=== PATIENT | female | born 1990 | race Caucasian/White ===

== ENCOUNTER 2017-02-08 16:25 | Emergency (ER) | payer OTHER ==
[2017-02-08 16:46] VITALS: BP 121/72; PULSE 60; RESP 17; TEMP 98.2
--- NOTE | 2017-02-08 16:55 | ED ---
General Adult HPI - General Chief complaint: Extremity Injury, Lower Stated complaint: LEFT ANKLE PAIN Time Seen by Provider: 02/08/17 16:47 Source: patient, RN notes reviewed Mode of arrival: wheelchair Limitations: no limitations - History of Present Illness Initial comments: This is a 26-year-old female presents with left foot pain. Patient states she was jumping around with her kids and landed on her left foot wrong. Patient now complains of pain to the top of her left foot. Patient denies any ankle pain. Patient denies any numbness/weakness or tingling. Patient states she has noticed swelling to the left foot. Patient denies any chance of being . Patient denies any recent fever, chills, shortness breath, chest pain , abdominal pain, nausea/vomiting/diarrhea, back pain, hematuria, headache, or visual changes, or any other complaints. - Related Data Home Medications Medication Instructions Recorded Confirmed Folic Acid 1 mg PO DAILY 08/22/16 09/09/16 Calcium Carbonate [Tums] 500 mg PO AC-SUPPER 09/01/16 09/09/16 Previous Rx's Medication Instructions Recorded Acetaminophen-Codeine 300-30mg 1 tab PO Q4H PRN #30 tablet 09/12/16 [Tylenol #3] Ferrous Sulfate [Feosol] 325 mg PO DAILY #30 tab 09/12/16 Ibuprofen [Motrin] 600 mg PO Q6HR PRN #30 tab 09/12/16 Allergies Allergy/AdvReac Type Severity Reaction Status Date / Time No Known Allergies Allergy Verified 09/09/16 06:13 Review of Systems ROS Statement: Those systems with pertinent positive or pertinent negative responses have been documented in the HPI. ROS Other: All systems not noted in ROS Statement are negative. Past Medical History Past Medical History: No Reported History History of Any Multi-Drug Resistant Organisms: None Reported Past Surgical History: No Surgical Hx Reported Past Anesthesia/Blood Transfusion Reactions: No Reported Reaction Past Psychological History: No Psychological Hx Reported Smoking Status: Former smoker Past Alcohol Use History: Occasional Past Drug Use History: None Reported - Past Family History Mother Family Medical History: Hypertension General Exam - General Exam Comments Initial Comments: General: The patient is awake and alert, in no distress, and does not appear acutely ill. Neck: The neck is supple, there is no tenderness or JVD. Cardiovascular: There is a regular rate and rhythm. No murmur, rub or gallop is appreciated. Respiratory: Lungs are clear to auscultation, respirations are non-labored, breath sounds are equal. No wheezes, stridor, rales, or rhonchi. Musculoskeletal: There is tenderness to palpation over the dorsal aspect of the left foot along with the lateral and medial aspects of the left foot. There is no tenderness to palpation of the right ankle. There is mild swelling to the left foot. There is no erythema or ecchymosis. Patient has strength 5/5, limited range of motion due to pain and sensation intact. Posterior tibial and dorsalis pedis pulses 2+ bilaterally. Neurological: A&O x 3. CN II-XII intact, There are no obvious motor or sensory deficits. Coordination appears grossly intact. Speech is normal. Skin: Skin is warm and dry and no rashes or lesions are noted. Psychiatric: Normal mood and affect. Limitations: no limitations Course Vital Signs 02/08/17 16:43 Temperature 98.2 F Pulse Rate 60 Respiratory 17 Rate Blood Pressure 121/72 O2 Sat by Pulse 98 Oximetry Medical Decision Making - Medical Decision Making This is a 26-year-old female who presents with foot pain. On physical exam there is tenderness to palpation over the dorsal aspect of the left foot along with the lateral and medial aspects of the left foot. There is no tenderness to palpation of the right ankle. There is mild swelling to the left foot. There is no erythema or ecchymosis. Patient has strength 5/5, limited range of motion due to pain and sensation intact. Posterior tibial and dorsalis pedis pulses 2+ bilaterally. An x-ray of the left foot was done and reviewed showing : Negative foot exam. Reported by Dr. Martinez. I discussed results with patient. Discussed foot sprain. I discussed rest, ice, elevate and use James wrap for compression. I discussed Tylenol and Motrin for any pain. I discussed occult fracture. I discussed follow-up with orthopedics if symptoms do not improve 3-5 days. I discussed use of crutches. Discussed range of motion exercises. Discussed that patient should follow up with PCP in one to 2 days or return to the [facility] for any worsening symptoms or for any further concerns. Patient was receptive to this plan and patient will be discharged home. Disposition Clinical Impression: Foot sprain Disposition: HOME SELF-CARE Condition: Good Instructions: Foot Sprain (ED) Additional Instructions: Please rest, ice, elevate and use James wrap for compression. Please use Tylenol or Motrin for any pain. Please use crutches as needed for ambulation. Please perform range of motion exercises periodically throughout the day.If symptoms do not improve in the next 7 days repeat x-rays may be needed to rule out occult fracture. Please follow-up with family doctor in the next 2 days of symptoms have not improved. Please return to emergency room if the symptoms increase or worsen or for any other concerns. Referrals: Abdiel Solomon MD [Primary Care Provider] - 1-2 days Derik Golden MD [Medical Doctor] - 1-2 days Time of Disposition: 18:08
--- NOTE | 2017-02-08 17:58 | XR ---
EXAMINATION TYPE: XR foot complete LT DATE OF EXAM: 02/08/2017 5:11 PM COMPARISON: NONE HISTORY: Foot pain TECHNIQUE: 3 views FINDINGS: I see no fracture nor dislocation. Metatarsals appear intact. There are no erosions. IMPRESSION: Negative left foot exam.
== END 2017-02-08 18:10 | disposition home or self-care (01) ==
LOC: EC 16:25
DX: S93.601A Unspecified sprain of right foot, initial encounter (principal); X58.XXXA Exposure to other specified factors, initial encounter; Y93.39 Activity, other involving climbing, rappelling and jumping off; Z87.891 Personal history of nicotine dependence
CPT/HCPCS: 99283

== ENCOUNTER → 2017-11-17 | Outpatient (CLI) | payer OTHER ==
[2017-11-18 04:40] LABS: HIV AB P24 Non-Reactive (Non-Reactive); HIV P24 AG Non-Reactive (Non-Reactive)
== END | disposition home or self-care (01) ==
LOC: LABWHC1 15:59
PROVIDERS: ATTEND Obstetrics & Gynecology
DX: Z11.3 Encounter for screening for infections with a predominantly sexual mode of transmission (principal)
CPT/HCPCS: 36415; 86780; 87390

== ENCOUNTER 2020-01-10 17:01 | Emergency (ER) | payer OTHER ==
[2020-01-10 17:11] VITALS: BP 118/83; PULSE 78; RESP 18; TEMP 98.1
--- NOTE | 2020-01-10 17:49 | ED ---
General Adult HPI - General Chief complaint: Headache Stated complaint: Fever Time Seen by Provider: 01/10/20 17:36 Source: patient, RN notes reviewed Mode of arrival: ambulatory Limitations: no limitations - History of Present Illness Initial comments: This is a 29-year-old female presents emergency Department chief complaint of sinus pressure and congestion headache. Patient states she's been sick for last 10 days. Patient states is not going away. She reports body aches and subjective fevers and chills denies any unilateral headache, weakness denies any nausea vomiting. Patient states she's had headaches like this in the past as well as not the worse headache of her life. - Related Data Home Medications Medication Instructions Recorded Confirmed Folic Acid 1 mg PO DAILY 08/22/16 09/09/16 Calcium Carbonate [Tums] 500 mg PO AC-SUPPER 09/01/16 09/09/16 Previous Rx's Medication Instructions Recorded Acetaminophen-Codeine 300-30mg 1 tab PO Q4H PRN #30 tablet 09/12/16 [Tylenol #3] Ferrous Sulfate [Feosol] 325 mg PO DAILY #30 tab 09/12/16 Ibuprofen [Motrin] 600 mg PO Q6HR PRN #30 tab 09/12/16 Amoxicillin/Potassium Clav 1 tab PO Q12HR #20 tab 01/10/20 [Augmentin 875-125 Tablet] Allergies Allergy/AdvReac Type Severity Reaction Status Date / Time No Known Allergies Allergy Verified 01/10/20 17:08 Review of Systems ROS Statement: Those systems with pertinent positive or pertinent negative responses have been documented in the HPI. ROS Other: All systems not noted in ROS Statement are negative. Past Medical History Past Medical History: No Reported History History of Any Multi-Drug Resistant Organisms: None Reported Past Surgical History: No Surgical Hx Reported Past Anesthesia/Blood Transfusion Reactions: No Reported Reaction Past Psychological History: No Psychological Hx Reported Smoking Status: Current some day smoker Past Alcohol Use History: Occasional Past Drug Use History: None Reported - Past Family History Mother Family Medical History: Hypertension General Exam Limitations: no limitations General appearance: alert, in no apparent distress Head exam: Present: atraumatic, normocephalic, normal inspection Eye exam: Present: PERRL, EOMI. Absent: normal appearance, scleral icterus, conjunctival injection, periorbital swelling ENT exam: Present: mucous membranes moist, TM's normal bilaterally. Absent: normal exam (Tenderness to the sinuses noted), normal oropharynx Neck exam: Present: normal inspection, full ROM. Absent: tenderness, meningismus, lymphadenopathy Respiratory exam: Present: normal lung sounds bilaterally. Absent: respiratory distress, wheezes, rales, rhonchi, stridor Cardiovascular Exam: Present: regular rate, normal rhythm, normal heart sounds. Absent: systolic murmur, diastolic murmur, rubs, gallop, clicks Course Vital Signs 01/10/20 17:08 Temperature 98.1 F Pulse Rate 78 Respiratory 18 Rate Blood Pressure 118/83 O2 Sat by Pulse 100 Oximetry Medical Decision Making - Medical Decision Making Patient has had ongoing headache, sinus congestion pressure. Patient treated for acute sinusitis. Did offer imaging patient declined at this time. Patient will follow-up with symptoms worsen. Disposition Clinical Impression: Sinusitis Disposition: HOME SELF-CARE Condition: Stable Instructions (If sedation given, give patient instructions): Sinusitis (ED) Additional Instructions: Please return to the Emergency Department if symptoms worsen or any other concerns. Prescriptions: Amoxicillin/Potassium Clav [Augmentin 875-125 Tablet] 1 tab PO Q12HR #20 tab Is patient prescribed a controlled substance at d/c from ED?: No Referrals: Abdiel Solomon MD [Primary Care Provider] - 1-2 days Time of Disposition: 17:49
== END 2020-01-10 17:58 | disposition home or self-care (01) ==
LOC: EC 17:01
DX: J01.90 Acute sinusitis, unspecified (principal); F17.200 Nicotine dependence, unspecified, uncomplicated
CPT/HCPCS: 99283

== ENCOUNTER → 2020-07-30 | Outpatient (CLI) | payer OTHER ==
[2020-07-30 15:17] LABS: HCT 40.4 % (34.0-46.0); HGB 12.8 gm/dL (11.4-16.0); MCH 29.5 pg (25.0-35.0); MCHC 31.6 g/dL (31.0-37.0); MCV 93.3 fL (80.0-100.0); Mean Platelet Volume 7.8; Platelet Count 257 k/uL (150-450); RBC 4.33 m/uL (3.80-5.40); RDW 13.2 % (11.5-15.5); WBC 5.8 k/uL (3.8-10.6)
[2020-07-30 17:24] LABS: Lymphocytes # (M) 1.57 k/uL (1.0-4.8); Monocytes # (M) 0.17 k/uL (0-1.0); Neutrophils # (M) 4.06 k/uL (1.3-7.7); Neutrophils % (M) 70 %; Nucleated Red Blood Cells 0 /100 WBC (0-0); Total Cells Counted 100
[2020-07-31 01:02] LABS: Erythrocyte Sedimentation Rate 4 mm/Hr (0-20)
[2020-07-31 15:44] LABS: HLA B27 NEGATIVE
== END | disposition home or self-care (01) ==
LOC: LABWHC1 14:10
PROVIDERS: ATTEND Internal Medicine
DX: M79.641 Pain in right hand (principal); I73.00 Raynaud's syndrome without gangrene
CPT/HCPCS: 36415; 85025; 85652; 86038; 86431; 86812

== ENCOUNTER 2021-10-30 23:22 | Emergency (ER) | payer OTHER ==
[2021-10-30 23:38] VITALS: RESP 20; TEMP 98.4
--- NOTE | 2021-10-31 00:01 | XR ---
EXAMINATION TYPE: XR chest 2V DATE OF EXAM: 10/30/2021 COMPARISON: NONE HISTORY: Chest pain TECHNIQUE: 2 views FINDINGS: Heart and mediastinum are normal. Lungs are clear. Diaphragm is normal. Bony thorax is norm al. IMPRESSION: Normal chest.
[2021-10-31] MEDS ORDERED: KETOROLAC 15 MG/ML 1 ML VIAL IVP STA (01:45)
[2021-10-31] MEDS ORDERED: SODIUM CHLORIDE 0.9% 1,000 ML IV STA (01:45)
[2021-10-31 02:23] LABS: Appearance,Urine Clear (Clear); Bilirubin,Urine Negative (Negative); Blood,Urine Negative (Negative); Color,Urine Light Yellow; Glucose,Urine (UA) Negative (Negative); Ketones,Urine Negative (Negative); Leukocyte Esterase,Urine Negative (Negative); Nitrite,Urine Negative (Negative); Protein,Urine Negative (Negative); Specific Gravity,Urine 1.006 (1.001-1.035); Urobilinogen,Urine <2.0 mg/dL (<2.0)
--- NOTE | 2021-10-31 02:33 | CT ---
EXAMINATION TYPE: CT abdomen pelvis wo con DATE OF EXAM: 10/31/2021 COMPARISON: None HISTORY: ABD PAIN CT DLP: 414.20 mGycm Automated exposure control for dose reduction was used. Images obtained from the diaphragm to the floor the pelvis without contrast. Lung bases are clear. There is no pleural effusion. Heart size is normal. There is no pericardial eff usion. Liver spleen stomach pancreas appear intact. The bile ducts are not dilated. There is no adrenal mass. Kidneys have normal size. There is no hydronephrosis. Ureters are not dilat ed. There is no retroperitoneal adenopathy. Appendix is posterior and appears normal. There is no ret roperitoneal adenopathy. Bladder distends smoothly. There is no inguinal hernia. There is no free flu id in the pelvis. Uterus is anteverted. Lumbar vertebra have normal alignment. Posterior elements are intact. There is no compression fracture. Bony pelvis is intact. Hip joints are intact. There is no mesenteric edema. There is no ascites or free air. There is no bowel obstruction. IMPRESSION: Negative CT scan abdomen and pelvis. Normal appendix.
[2021-10-31 02:46] LABS: ALT 9 U/L (4-34); AST 21 U/L (14-36); African American GFR (CKD) >90 (>60 ml/min/1.73 sqM); Albumin 4.8 g/dL (3.5-5.0); Alkaline Phosphatase 50 U/L (38-126); Anion Gap 11 mmol/L; Blood Urea Nitrogen 9 mg/dL (7-17); Calcium 9.8 mg/dL (8.4-10.2); Carbon Dioxide 26 mmol/L (22-30); Chloride 103 mmol/L (98-107); Glucose 96 mg/dL (74-99); Lipase 144 U/L (23-300); Non-African American GFR(CKD) >90 (>60 ml/min/1.73 sqM); Potassium 4.3 mmol/L (3.5-5.1); Sodium 140 mmol/L (137-145); Total Bilirubin 0.4 mg/dL (0.2-1.3); Total Protein 8.4 g/dL (6.3-8.2)
[2021-10-31 02:55] LABS: HCT 40.4 % (34.0-46.0); HGB 13.2 gm/dL (11.4-16.0); MCHC 32.7 g/dL (31.0-37.0); MCV 91.9 fL (80.0-100.0); Mean Platelet Volume 8.5; Platelet Count 268 k/uL (150-450); RBC 4.39 m/uL (3.80-5.40); RDW 13.4 % (11.5-15.5); WBC 13.2 k/uL (3.8-10.6)
--- NOTE | 2021-10-31 03:02 | ED ---
General Adult HPI - General Chief complaint: Recheck/Abnormal Lab/Rx Stated complaint: rib pain Time Seen by Provider: 10/31/21 01:21 Source: patient Mode of arrival: ambulatory Limitations: no limitations - History of Present Illness Initial comments: 31-year-old female patient presents to the emergency department today for evaluation of left flank pain. States it is sharp. Worsens with deep breaths. States this started 2-3 days ago. She reports some mild discomfort to left upper quadrant. States she is currently on her period. He denies any dysuria or urinary urgency or frequency. Denies any fever or chills. Denies nausea or vomiting. Denies any shortness of breath. She did recently have COVID-19 symptoms improved a little over a week ago. Patient denies any recent rash, chest pain, diarrhea, constipation, numbness, tingling, dizziness, weakness, hematuria, dysuria, urinary urgency, urinary frequency, headache, visual changes, or any other complaints. - Related Data Home Medications Medication Instructions Recorded Confirmed Folic Acid 1 mg PO DAILY 08/22/16 09/09/16 Calcium Carbonate [Tums] 500 mg PO AC-SUPPER 09/01/16 09/09/16 Previous Rx's Medication Instructions Recorded Acetaminophen-Codeine 300-30mg 1 tab PO Q4H PRN #30 tablet 09/12/16 [Tylenol #3] Ferrous Sulfate [Feosol] 325 mg PO DAILY #30 tab 09/12/16 Ibuprofen [Motrin] 600 mg PO Q6HR PRN #30 tab 09/12/16 Amoxicillin/Potassium Clav 1 tab PO Q12HR #20 tab 01/10/20 [Augmentin 875-125 Tablet] Cyclobenzaprine [Flexeril] 10 mg PO TID #15 tab 10/31/21 Ibuprofen [Motrin] 600 mg PO Q8HR PRN #30 tab 10/31/21 Allergies Allergy/AdvReac Type Severity Reaction Status Date / Time No Known Allergies Allergy Verified 10/30/21 23:34 Review of Systems ROS Statement: Those systems with pertinent positive or pertinent negative responses have been documented in the HPI. ROS Other: All systems not noted in ROS Statement are negative. Past Medical History Past Medical History: No Reported History History of Any Multi-Drug Resistant Organisms: None Reported Past Surgical History: No Surgical Hx Reported Past Anesthesia/Blood Transfusion Reactions: No Reported Reaction Past Psychological History: No Psychological Hx Reported Smoking Status: Never smoker Past Alcohol Use History: Occasional Past Drug Use History: None Reported - Past Family History Mother Family Medical History: Hypertension General Exam Limitations: no limitations General appearance: alert, in no apparent distress, other (This is a well- developed, well-nourished adult female patient in no acute distress. Vital signs upon presentation are temperature 98.4F, pulse 78, respirations 20, blood pressure 114/66, pulse ox 99% on room air.) ENT exam: Present: normal exam, normal oropharynx, mucous membranes moist Respiratory exam: Present: normal lung sounds bilaterally. Absent: respiratory distress, wheezes, rales, rhonchi, stridor Cardiovascular Exam: Present: regular rate, normal rhythm, normal heart sounds. Absent: systolic murmur, diastolic murmur, rubs, gallop, clicks GI/Abdominal exam: Present: soft, tenderness (Left upper quadrant), normal bowel sounds. Absent: distended, guarding, rebound, rigid Back exam: Present: normal inspection, CVA tenderness (L). Absent: CVA tenderness (R) Neurological exam: Present: alert, oriented X3, CN II-XII intact Psychiatric exam: Present: normal affect, normal mood Skin exam: Present: warm, dry, intact, normal color. Absent: rash Course Vital Signs 10/30/21 23:34 Temperature 98.4 F Pulse Rate 78 Respiratory 20 Rate Blood Pressure 114/66 O2 Sat by Pulse 99 Oximetry Medical Decision Making - Medical Decision Making 31-year-old female patient presented for evaluation of left flank pain radiation to the left abdomen. Physical examination did reveal left CVA tenderness on the left upper quadrant tenderness. She is afebrile normal vital signs. Labs reviewed and did reveal mildly elevated white blood cell count. CT abdomen and pelvis was obtained and was negative. We did discuss possible muscular injury. She'll be given Flexeril Tylenol codeine starter pack. She'll be discharged with ibuprofen Flexeril. She is instructed to apply hot compresses perform gentle range of motion. Instructed to follow-up the primary care physician for recheck as soon as possible. Return parameters were discussed in detail. She verbalizes understanding and agrees with this plan. My attending is Dr. Rob. - Lab Data Result diagrams: 10/31/21 02:19 10/31/21 02:19 Lab Results 10/31/21 10/31/21 10/31/21 Range/Units 02:01 02:01 02:19 WBC 13.2 H (3.8-10.6) k/uL RBC 4.39 (3.80-5.40) m/uL Hgb 13.2 (11.4-16.0) gm/dL Hct 40.4 (34.0-46.0) % MCV 91.9 (80.0-100.0) fL MCH 30.0 (25.0-35.0) pg MCHC 32.7 (31.0-37.0) g/dL RDW 13.4 (11.5-15.5) % Plt Count 268 (150-450) k/uL MPV 8.5 Sodium (137-145) mmol/L Potassium (3.5-5.1) mmol/L Chloride (98-107) mmol/L Carbon Dioxide (22-30) mmol/L Anion Gap mmol/L BUN (7-17) mg/dL Creatinine (0.52-1.04) mg/dL Est GFR (CKD-EPI)AfAm (>60 ml/min/1.73 sqM) Est GFR (CKD-EPI)NonAf (>60 ml/min/1.73 sqM) Glucose (74-99) mg/dL Plasma Lactic Acid Ruddy (0.7-2.0) mmol/L Calcium (8.4-10.2) mg/dL Total Bilirubin (0.2-1.3) mg/dL AST (14-36) U/L ALT (4-34) U/L Alkaline Phosphatase (38-126) U/L Total Protein (6.3-8.2) g/dL Albumin (3.5-5.0) g/dL Lipase (23-300) U/L Urine Color Light Yellow Urine Appearance Clear (Clear) Urine pH 6.0 (5.0-8.0) Ur Specific Balm 1.006 (1.001-1.035) Urine Protein Negative (Negative) Urine Glucose (UA) Negative (Negative) Urine Ketones Negative (Negative) Urine Blood Negative (Negative) Urine Nitrite Negative (Negative) Urine Bilirubin Negative (Negative) Urine Urobilinogen <2.0 (<2.0) mg/dL Ur Leukocyte Esterase Negative (Negative) Urine HCG, Qual Not Detected (Not Detectd) 10/31/21 10/31/21 Range/Units 02:19 02:19 WBC (3.8-10.6) k/uL RBC (3.80-5.40) m/uL Hgb (11.4-16.0) gm/dL Hct (34.0-46.0) % MCV (80.0-100.0) fL MCH (25.0-35.0) pg MCHC (31.0-37.0) g/dL RDW (11.5-15.5) % Plt Count (150-450) k/uL MPV Sodium 140 (137-145) mmol/L Potassium 4.3 (3.5-5.1) mmol/L Chloride 103 (98-107) mmol/L Carbon Dioxide 26 (22-30) mmol/L Anion Gap 11 mmol/L BUN 9 (7-17) mg/dL Creatinine 0.65 (0.52-1.04) mg/dL Est GFR (CKD-EPI)AfAm >90 (>60 ml/min/1.73 sqM) Est GFR (CKD-EPI)NonAf >90 (>60 ml/min/1.73 sqM) Glucose 96 (74-99) mg/dL Plasma Lactic Acid Ruddy <0.5 L (0.7-2.0) mmol/L Calcium 9.8 (8.4-10.2) mg/dL Total Bilirubin 0.4 (0.2-1.3) mg/dL AST 21 (14-36) U/L ALT 9 (4-34) U/L Alkaline Phosphatase 50 (38-126) U/L Total Protein 8.4 H (6.3-8.2) g/dL Albumin 4.8 (3.5-5.0) g/dL Lipase 144 (23-300) U/L Urine Color Urine Appearance (Clear) Urine pH (5.0-8.0) Ur Specific Balm (1.001-1.035) Urine Protein (Negative) Urine Glucose (UA) (Negative) Urine Ketones (Negative) Urine Blood (Negative) Urine Nitrite (Negative) Urine Bilirubin (Negative) Urine Urobilinogen (<2.0) mg/dL Ur Leukocyte Esterase (Negative) Urine HCG, Qual (Not Detectd) - Radiology Data Radiology results: report reviewed, image reviewed X-ray of the chest is obtained. Report was reviewed in its entirety. Impression by Dr. Martinez shows normal chest. CT abdomen and pelvis was obtained without contrast. Report was reviewed in its entirety. Impression by Dr. Martinez shows negative computed tomography scan abdomen and pelvis. Normal appendix. Disposition Clinical Impression: Flank pain, Muscle spasm Disposition: HOME SELF-CARE Condition: Good Instructions (If sedation given, give patient instructions): Flank Pain (ED), Muscle Spasm (ED) Additional Instructions: Apply warm compresses to the area. Perform gentle range of motion. Take medication as directed. Follow up through primary care physician for recheck in 1-2 days. Return for any new, worsening, or concerning symptoms. Prescriptions: Cyclobenzaprine [Flexeril] 10 mg PO TID #15 tab Ibuprofen [Motrin] 600 mg PO Q8HR PRN #30 tab PRN Reason: Pain Is patient prescribed a controlled substance at d/c from ED?: No Referrals: Abdiel Solomon MD [Primary Care Provider] - 1-2 days Time of Disposition: 03:24
[2021-10-31] MEDS ORDERED: ACET/COD 300 MG/30 MG STARTER PACK 6 TAB BTL PO STA (03:21)
[2021-10-31] MEDS ORDERED: CYCLOBENZAPRINE 10MG STARTER 3 TAB BTL PO STA (03:21)
[2021-10-31 03:24] LABS: Band Neutrophils % 3 %; Eosinophils # (M) 0.13 k/uL (0-0.7); Lymphocytes # (M) 1.19 k/uL (1.0-4.8); Monocytes # (M) 0.13 k/uL (0-1.0); Neutrophils % (M) 86 %; Nucleated Red Blood Cells 0 /100 WBC (0-0); Total Cells Counted 100
[2021-10-31 03:40] VITALS: BP 116/72; PULSE 80
== END 2021-10-31 03:39 | disposition home or self-care (01) ==
LOC: EC 23:22
DX: R10.12 Left upper quadrant pain (principal); M62.838 Other muscle spasm
CPT/HCPCS: 99284; 96374; 96361; 36415; 80053; 83605; 83690; 85025; 81003; 81025; 71046; 74176; J1885

== ENCOUNTER 2023-06-24 08:02 | Emergency (ER) | payer OTHER ==
[2023-06-24 08:12] VITALS: BP 117/79; PULSE 79; RESP 18; TEMP 98.9
--- NOTE | 2023-06-24 08:24 | ED ---
General Adult HPI - General Chief complaint: Extremity Problem,Nontraumatic Stated complaint: L arm numbness Time Seen by Provider: 06/24/23 08:06 Source: patient, RN notes reviewed, old records reviewed Mode of arrival: ambulatory Limitations: no limitations - History of Present Illness Initial comments: 32-year-old female presenting for evaluation of left hand pain and wrist pain and numbness. The numbness affects the fourth and fifth digits predominantly. She does have a job which requires a lot of repetitive motion and she uses her left arm predominantly. Denies headache. Denies speech abnormalities, denies any symptoms in the leg. No specific injury. No fever - Related Data Home Medications Medication Instructions Recorded Confirmed Folic Acid 1 mg PO DAILY 08/22/16 09/09/16 Calcium Carbonate [Tums] 500 mg PO AC-SUPPER 09/01/16 09/09/16 Previous Rx's Medication Instructions Recorded Acetaminophen-Codeine 300-30mg 1 tab PO Q4H PRN #30 tablet 09/12/16 [Tylenol #3] Ferrous Sulfate [Feosol] 325 mg PO DAILY #30 tab 09/12/16 Ibuprofen [Motrin] 600 mg PO Q6HR PRN #30 tab 09/12/16 Amoxicillin/Potassium Clav 1 tab PO Q12HR #20 tab 01/10/20 [Augmentin 875-125 Tablet] Cyclobenzaprine [Flexeril] 10 mg PO TID #15 tab 10/31/21 Ibuprofen [Motrin] 600 mg PO Q8HR PRN #30 tab 10/31/21 Ibuprofen [Motrin] 600 mg PO Q8HR PRN #24 tab 06/24/23 Allergies Allergy/AdvReac Type Severity Reaction Status Date / Time No Known Allergies Allergy Verified 06/24/23 08:12 Review of Systems ROS Statement: Those systems with pertinent positive or pertinent negative responses have been documented in the HPI. ROS Other: All systems not noted in ROS Statement are negative. Past Medical History Past Medical History: No Reported History History of Any Multi-Drug Resistant Organisms: None Reported Past Surgical History: No Surgical Hx Reported Past Anesthesia/Blood Transfusion Reactions: No Reported Reaction Past Psychological History: No Psychological Hx Reported Smoking Status: Never smoker Past Alcohol Use History: Occasional Past Drug Use History: Marijuana - Past Family History Mother Family Medical History: Hypertension General Exam Limitations: no limitations General appearance: alert, in no apparent distress Head exam: Present: atraumatic, normocephalic Eye exam: Present: normal appearance, PERRL ENT exam: Present: normal exam Neck exam: Present: normal inspection Respiratory exam: Present: normal lung sounds bilaterally. Absent: respiratory distress, wheezes Cardiovascular Exam: Present: regular rate, normal rhythm GI/Abdominal exam: Present: soft. Absent: distended, tenderness, guarding, rebound Extremities exam: Present: normal inspection, full ROM, normal capillary refill. Absent: tenderness Neurological exam: Present: alert, oriented X3, CN II-XII intact. Absent: motor sensory deficit Psychiatric exam: Present: normal affect, normal mood Skin exam: Present: warm, dry, intact. Absent: cyanosis, diaphoretic Course Vital Signs 06/24/23 08:09 Temperature 98.9 F Pulse Rate 79 Respiratory 18 Rate Blood Pressure 117/79 O2 Sat by Pulse 98 Oximetry Medical Decision Making - Medical Decision Making Was pt. sent in by a medical professional or institution (, PA, PACKAGE CENTER SUPERVISOR, urgent care, hospital, or assisted...) When possible be specific @ -No Did you speak to anyone other than the patient for history (EMS, parent, family, police, friend...)? What history was obtained from this source @ -No Did you review nursing and triage notes (agree or disagree)? Why? @ -I reviewed and agree with nursing and triage notes Were old charts reviewed (outside hosp., previous admission, EMS record, old EKG, old radiological studies, urgent care reports/EKG's, assisted records)? Report findings @ -No old charts were reviewed Differential Diagnosis (chest pain, altered mental status, abdominal pain women, abdominal pain men, vaginal bleeding, weakness, fever, dyspnea, syncope, headache, dizziness, GI bleed, back pain, seizure, CVA, palpatations, mental health, musculoskeletal)? @ -[Differential Musculoskeletal Muscular strain, contusion, ligament sprain, fracture, arthritis, septic arthritis, bursitis, cellulitis, muscle spasm, nerve compression, DVT, arterial occlusion, herpes zoster, electrolyte abnormality, tumor.... This is not meant to be in all inclusive list EKG interpreted by me (3pts min.). @ -As above X-rays interpreted by me (1pt min.). @ -None done CT interpreted by me (1pt min.). @ -None done U/S interpreted by me (1pt. min.). @ -None done What testing was considered but not performed or refused? (CT, X-rays, U/S, labs)? Why? @ -None What meds were considered but not given or refused? Why? @ -None Did you discuss the management of the patient with other professionals (professionals i.e. Dr., PA, PACKAGE CENTER SUPERVISOR, lab, RT, psych nurse, delinquency prevention social worker, bowling ball finisher, teacher, corrections officer, case consultant)? Give summary @ -No Was smoking cessation discussed for >3mins.? @ -No Was critical care preformed (if so, how long)? @ -No Were there social determinants of health that impacted care today? How? (Homelessness, low income, unemployed, alcoholism, drug addiction, transportation, low edu. Level, literacy, decrease access to med. care, penitentiary, rehab)? @ -No Was there de-escalation of care discussed even if they declined (Discuss DNR or withdrawal of care, Hospice)? DNR status @ -No What co-morbidities impacted this encounter? (DM, HTN, Smoking, COPD, CAD, Cancer, CVA, ARF, Chemo, Hep., AIDS, mental health diagnosis, sleep apnea, morbid obesity)? @ -None Was patient admitted / discharged? Hospital course, mention meds given and route, prescriptions, significant lab abnormalities, going to OR and other pertinent info. @ -[22-year-old female with pain and numbness to the left hand and wrist. Likely cubital tunnel syndrome she has a repetitive job and uses predominantly her left hand. She has numbness sensation to the fourth and fifth digit. She has good strength throughout, no focal weakness. No ataxia. Normal cap refill. No soft tissue swelling. She will rest and ice the extremity and take Motrin. She's given strict return parameters. Undiagnosed new problem with uncertain prognosis? @ -No Drug Therapy requiring intensive monitoring for toxicity (Heparin, Nitro, Insulin, Cardizem)? @ -No Were any procedures done? @ -No Diagnosis/symptom? @ -[Ulnar nerve neuropathy Acute, or Chronic, or Acute on Chronic? @ -[Acute Uncomplicated (without systemic symptoms) or Complicated (systemic symptoms)? @ -default Side effects of treatment? @ -No Exacerbation, Progression, or Severe Exacerbation? @ -No Poses a threat to life or bodily function? How? (Chest pain, USA, [place], pneumonia, PE, COPD, DKA, ARF, appy, cholecystitis, CVA, Diverticulitis, Homicidal, Suicidal, threat to staff... and all critical care pts) @ -No Disposition Clinical Impression: Ulnar nerve neuropathy Disposition: HOME SELF-CARE Instructions (If sedation given, give patient instructions): Peripheral Neuropathy (ED), Paresthesia (ED) Prescriptions: Ibuprofen [Motrin] 600 mg PO Q8HR PRN #24 tab PRN Reason: Pain Is patient prescribed a controlled substance at d/c from ED?: No Referrals: Abdiel Solomon MD [Primary Care Provider] - 1-2 days Time of Disposition: 08:24
== END 2023-06-24 08:42 | disposition home or self-care (01) ==
LOC: EC 08:02
DX: G56.22 Lesion of ulnar nerve, left upper limb (principal); F12.90 Cannabis use, unspecified, uncomplicated
CPT/HCPCS: 99283

== ENCOUNTER 2023-11-07 21:43 | Emergency (ER) | payer BC, OTHER ==
[2023-11-07 22:13] VITALS: RESP 18; TEMP 98.3
--- NOTE | 2023-11-07 23:22 | ED ---
General Adult HPI - General Chief complaint: Upper Respiratory Infection Stated complaint: covid + w/chest pain Time Seen by Provider: 11/07/23 22:06 Source: patient Mode of arrival: ambulatory Limitations: no limitations - History of Present Illness Initial comments: Patient is a 33-year-old female presenting for evaluation after testing positive for Covid. Patient tested positive around November 03, she has had continued coughing and congestion. She states that she also has soreness to the ribs bilaterally from coughing. Patient is also complaining of a painful lesion to the vulva. Patient states that she has had a sore on the vulva for quite some time, she saw Dr. Olvera and had testing done as an for various STI is including syphilis and herpes which came back negative. She states that there is a irritation and itching over the sore. She has not taken any medication or applied any topical products. - Related Data Home Medications Medication Instructions Recorded Confirmed Folic Acid 1 mg PO DAILY 08/22/16 09/09/16 Calcium Carbonate [Tums] 500 mg PO AC-SUPPER 09/01/16 09/09/16 Previous Rx's Medication Instructions Recorded Acetaminophen-Codeine 300-30mg 1 tab PO Q4H PRN #30 tablet 09/12/16 [Tylenol #3] Ferrous Sulfate [Feosol] 325 mg PO DAILY #30 tab 09/12/16 Ibuprofen [Motrin] 600 mg PO Q6HR PRN #30 tab 09/12/16 Amoxicillin/Potassium Clav 1 tab PO Q12HR #20 tab 01/10/20 [Augmentin 875-125 Tablet] Cyclobenzaprine [Flexeril] 10 mg PO TID #15 tab 10/31/21 Ibuprofen [Motrin] 600 mg PO Q8HR PRN #30 tab 10/31/21 Ibuprofen [Motrin] 600 mg PO Q8HR PRN #24 tab 06/24/23 Clobetasol Propionate [Temovate 1 applic TOPICAL HS #1 cream 11/07/23 0.05% Cream] Allergies Allergy/AdvReac Type Severity Reaction Status Date / Time No Known Allergies Allergy Verified 11/07/23 22:05 Review of Systems ROS Statement: Those systems with pertinent positive or pertinent negative responses have been documented in the HPI. ROS Other: All systems not noted in ROS Statement are negative. Past Medical History Past Medical History: No Reported History History of Any Multi-Drug Resistant Organisms: None Reported Past Surgical History: No Surgical Hx Reported Past Anesthesia/Blood Transfusion Reactions: No Reported Reaction Past Psychological History: No Psychological Hx Reported Smoking Status: Never smoker Past Alcohol Use History: Occasional Past Drug Use History: Marijuana - Past Family History Mother Family Medical History: Hypertension General Exam Limitations: no limitations General appearance: alert, in no apparent distress Head exam: Present: atraumatic, normocephalic Eye exam: Present: normal appearance Neck exam: Present: normal inspection Respiratory exam: Present: normal lung sounds bilaterally. Absent: respiratory distress, wheezes, rales, rhonchi, stridor Cardiovascular Exam: Present: regular rate, normal rhythm, normal heart sounds. Absent: systolic murmur, diastolic murmur, rubs, gallop, clicks External exam: Present: other (Patient has a plaque-like lesion to the inner portion of the labia minora on the left side, there is a central clearing) Extremities exam: Present: normal inspection Neurological exam: Present: alert, oriented X3 Psychiatric exam: Present: normal affect, normal mood Skin exam: Present: warm, dry Course Vital Signs 11/07/23 11/07/23 11/07/23 22:03 22:27 23:33 Temperature 98.3 F Pulse Rate 77 79 Respiratory 18 18 18 Rate Blood Pressure 115/75 118/77 O2 Sat by Pulse 97 97 Oximetry Medical Decision Making - Medical Decision Making Was pt. sent in by a medical professional or institution (STACIA Valente, MOTION PICTURE FILM EXAMINER, urgent care, hospital, or long-term...) When possible be specific @ -No Did you speak to anyone other than the patient for history (EMS, parent, family, police, friend...)? What history was obtained from this source @ -No Did you review nursing and triage notes (agree or disagree)? Why? @ -I reviewed and agree with nursing and triage notes Were old charts reviewed (outside hosp., previous admission, EMS record, old EKG, old radiological studies, urgent care reports/EKG's, long-term records)? Report findings @ -No old charts were reviewed Differential Diagnosis (chest pain, altered mental status, abdominal pain women, abdominal pain men, vaginal bleeding, weakness, fever, dyspnea, syncope, headache, dizziness, GI bleed, back pain, seizure, CVA, palpatations, mental health, musculoskeletal)? @ -Differential includes syphilis, herpes, lichen sclerosis, dermatitis, this is not an all inclusive list EKG interpreted by me (3pts min.). @ -As above X-rays interpreted by me (1pt min.). @ -None done CT interpreted by me (1pt min.). @ -None done U/S interpreted by me (1pt. min.). @ -None done What testing was considered but not performed or refused? (CT, X-rays, U/S, labs)? Why? @ -None What meds were considered but not given or refused? Why? @ -None Did you discuss the management of the patient with other professionals (professionals i.e. , PA, MOTION PICTURE FILM EXAMINER, lab, RT, psych nurse, director of social work, trial management associate, teacher, geospatial program management officer, shoe caser)? Give summary @ -No Was smoking cessation discussed for >3mins.? @ -No Was critical care preformed (if so, how long)? @ -No Were there social determinants of health that impacted care today? How? (Homelessness, low income, unemployed, alcoholism, drug addiction, chester sportation, low edu. Level, literacy, decrease access to med. care, half-way, rehab)? @ -No Was there de-escalation of care discussed even if they declined (Discuss DNR or withdrawal of care, Hospice)? DNR status @ -No What co-morbidities impacted this encounter? (DM, HTN, Smoking, COPD, CAD, Cancer, CVA, ARF, Chemo, Hep., AIDS, mental health diagnosis, sleep apnea, morbid obesity)? @ -None Was patient admitted / discharged? Hospital course, mention meds given and route, prescriptions, significant lab abnormalities, going to OR and other pertinent info. @ -33-year-old female presenting with chief complaint of cough and congestion due to Covid and irritating rash to the vulva. On physical exam heart and lungs are clear to auscultation. Vital signs are WNL. Patient is showing no signs of respiratory distress. She does admit to some bilateral rib soreness due to coughing, no chest pain or difficulty breathing. Inspection of the vulva was performed with nurse Dent present, there is a pale white plaque-like lesion to the inner portion of the labia minora on the left side. There is somewhat of a central clearing as well. Symptoms may be due to lichen sclerosis. I will trial patient on clobetasol ointment, she is instructed to follow-up with her PLATFORM WORKER for follow-up. Educated on supportive management of Covid. Follow-up with PCP. Report back to ER with any new or worsening symptoms. Discussed return parameters and answered all questions. Patient conveyed verbal understanding and agreed to the plan. I discussed this case in detail with my attending Dr. Camarena Undiagnosed new problem with uncertain prognosis? @ -No Drug Therapy requiring intensive monitoring for toxicity (Heparin, Nitro, Insulin, Cardizem)? @ -No Were any procedures done? @ -No Diagnosis/symptom? @ -Covid, vulvar lesion Acute, or Chronic, or Acute on Chronic? @ -Acute Uncomplicated (without systemic symptoms) or Complicated (systemic symptoms)? @ -Uncomplicated Side effects of treatment? @ -No Exacerbation, Progression, or Severe Exacerbation? @ -No Poses a threat to life or bodily function? How? (Chest pain, USA, [place], pneumonia, PE, COPD, DKA, ARF, appy, cholecystitis, CVA, Diverticulitis, Homicidal, Suicidal, threat to staff... and all critical care pts) @ -No Disposition Clinical Impression: COVID, Vulvar lesion Disposition: HOME SELF-CARE Condition: Good Instructions (If sedation given, give patient instructions): COVID-19 (Coronavirus Disease 2019) (ED) Additional Instructions: Follow-up with PCP and PLATFORM WORKER. Report back to ER with any new or worsening symptoms. Your vulvar symptoms may be attributed to lichen sclerosus, you will need to follow-up with your PLATFORM WORKER for any definitive testing and diagnosis. Some information on lichen sclerosus is provided for you Lichen sclerosus (said like-en [id number]) is a skin condition that makes patches of skin look white, thickened and crinkly. It most often affects the ski n around the vulva or anus. It can be itchy, painful and cause permanent scarring. Four in 100 (or four per cent of) women with this condition go on to develop vulvar cancer. Lichen sclerosus affects around one in 80 women. It can happen at any age, but is most common in middle-aged and elderly women. For most women it is a lifelong condition. What are the signs of lichen sclerosus? Symptoms include: chronic itchiness in the vulvar or anal area (which may go away and come back later) skin that looks pale, thicker or crinkled pain if the skin has split because of scratching. Skin affected by lichen sclerosus can also scar and join up with nearby skin. This can change the structure of your vulva for example, your labia minora may appear flattened, your clitoris can become buried under its jesus and/or the opening of your vagina may shrink. This can sometimes affect your ability to have and/or enjoy sex. What causes lichen sclerosus? Unfortunately, we dont yet know. Some researchers think that lichen sclerosus may be an auto-immune disorder, where your immune system becomes confused and attacks your skin instead of protecting it. Lichen sclerosus appears to be more common in women with other auto-immune illnesses such as thyroid problems or ulcerative colitis. How is lichen sclerosus diagnosed? Your doctor can diagnose lichen sclerosus by looking at your vulva. Sometimes they might take a small sample of your vulvar skin (called a biopsy) and send it away to a laboratory for testing. Unfortunately, lichen sclerosus is sometimes mistaken for thrush, which also causes vulvar itchiness. If your symptoms persist, you should see a aviation technical systems specialist (a medical data analyst) or womens health specialist (a gynaecologist). How is lichen sclerosus treated? Unfortunately there is no cure or way to get rid of lichen sclerosus completely. There are however ways to reduce or lessen the symptoms so that you can live comfortably with it. Cortisone ointment applied to the vulva can provide relief and stop lichen sclerosus from getting worse. This is a lifelong treatment and you will need to apply cortisone regularly (often once or twice a week) even when you have no symptoms. Strong cortisone is safe to use on inflamed skin and will not cause the skin of your vulva to thin. Surgery to remove any cancerous or pre-cancerous skin. Surgery can also remove scarring or adhesions that cover the entrance to your vagina if these are affecting your ability to have or enjoy penetrative sex. You will also need regular checkups with your doctor to monitor your lichen sclerosus. Let them know if you notice any new changes to your vulva. Can I have sex if I have lichen sclerosus? It is safe to have sex. You cant give someone lichen sclerosus because its not a sexually transmitted infection or contagious. You might find sex painful however, because scarring can make the vulvar skin (and vaginal opening) tight and more likely to split. Talk to your doctor or a sexual counsellor if sex is painful or you are anxious about trying it again. Dilators that help to open the vagina and exercises that relax the surrounding muscles may help. Things to remember Lichen sclerosus is often mistaken for thrush so see your doctor if you are often itchy in the vulvar or anal area. There are treatments that can help you successfully manage the symptoms. Lichen sclerosus is not contagious. Prescriptions: Clobetasol Propionate [Temovate 0.05% Cream] 1 applic TOPICAL HS #1 cream Is patient prescribed a controlled substance at d/c from ED?: No Referrals: Abdiel Solomon MD [Primary Care Provider] - 1-2 days Time of Disposition: 23:22
[2023-11-07] MEDS ORDERED: IBUPROFEN 600 MG TAB PO STA (23:25)
[2023-11-07] MEDS ORDERED: ACETAMINOPHEN TAB 325 MG TAB PO STA (23:25)
[2023-11-08 00:11] VITALS: BP 118/77; PULSE 79
== END 2023-11-07 23:33 | disposition home or self-care (01) ==
LOC: EC 21:43
DX: U07.1 COVID-19 (principal); N90.89 Other specified noninflammatory disorders of vulva and perineum; F12.90 Cannabis use, unspecified, uncomplicated
CPT/HCPCS: 87070; 87205; 99283

== ENCOUNTER 2023-11-17 18:20 | Emergency (ER) | payer BC, OTHER ==
[2023-11-17 18:33] VITALS: BP 126/80; PULSE 95; RESP 16; TEMP 98.7
[2023-11-17] MEDS ORDERED: LORATADINE 10 MG TAB PO STA (18:43)
--- NOTE | 2023-11-17 18:47 | ED ---
General Adult HPI - General Chief complaint: Allergic Reaction Stated complaint: Allergic Reaction Medication Time Seen by Provider: 11/17/23 18:31 Source: patient, RN notes reviewed Mode of arrival: ambulatory Limitations: no limitations - History of Present Illness Initial comments: Patient is a pleasant 33-year-old female presenting to the emergency department with rash. Onset of symptoms was a couple hours ago. Patient has been on antiviral medications secondary to mouth sores for the past couple of days. Patient states it tested negative for herpes virus and she stopped taking it. No dyspnea. No swelling of the lips or tongue or throat. No history of similar symptoms previously. - Related Data Home Medications Medication Instructions Recorded Confirmed Folic Acid 1 mg PO DAILY 08/22/16 09/09/16 Calcium Carbonate [Tums] 500 mg PO AC-SUPPER 09/01/16 09/09/16 Previous Rx's Medication Instructions Recorded Acetaminophen-Codeine 300-30mg 1 tab PO Q4H PRN #30 tablet 09/12/16 [Tylenol #3] Ferrous Sulfate [Feosol] 325 mg PO DAILY #30 tab 09/12/16 Ibuprofen [Motrin] 600 mg PO Q6HR PRN #30 tab 09/12/16 Amoxicillin/Potassium Clav 1 tab PO Q12HR #20 tab 01/10/20 [Augmentin 875-125 Tablet] Cyclobenzaprine [Flexeril] 10 mg PO TID #15 tab 10/31/21 Ibuprofen [Motrin] 600 mg PO Q8HR PRN #30 tab 10/31/21 Ibuprofen [Motrin] 600 mg PO Q8HR PRN #24 tab 06/24/23 Clobetasol Propionate [Temovate 1 applic TOPICAL HS #1 cream 11/07/23 0.05% Cream] Allergies Allergy/AdvReac Type Severity Reaction Status Date / Time No Known Allergies Allergy Verified 11/07/23 22:05 Review of Systems ROS Statement: Those systems with pertinent positive or pertinent negative responses have been documented in the HPI. ROS Other: All systems not noted in ROS Statement are negative. Constitutional: Denies: fever Eyes: Denies: eye pain ENT: Denies: ear pain Respiratory: Denies: cough, dyspnea Skin: Reports: as per HPI, rash Past Medical History Past Medical History: No Reported History History of Any Multi-Drug Resistant Organisms: None Reported Past Surgical History: No Surgical Hx Reported Past Anesthesia/Blood Transfusion Reactions: No Reported Reaction Past Psychological History: No Psychological Hx Reported Smoking Status: Never smoker Past Alcohol Use History: Occasional Past Drug Use History: Marijuana - Past Family History Mother Family Medical History: Hypertension General Exam Limitations: no limitations General appearance: alert, in no apparent distress Head exam: Present: atraumatic Eye exam: Present: normal appearance ENT exam: Present: normal oropharynx, other (No signs of angioedema) Neck exam: Present: lymphadenopathy. Absent: meningismus Respiratory exam: Present: normal lung sounds bilaterally Cardiovascular Exam: Present: regular rate, normal rhythm GI/Abdominal exam: Present: soft. Absent: tenderness Extremities exam: Present: normal inspection Neurological exam: Present: alert Psychiatric exam: Present: normal affect, normal mood Skin exam: Present: urticaria (Mild diffuse, mostly in the arms and anterior trunk) Course Vital Signs 11/17/23 18:23 Temperature 98.7 F Pulse Rate 95 Respiratory 16 Rate Blood Pressure 126/80 O2 Sat by Pulse 97 Oximetry Medical Decision Making - Medical Decision Making Was pt. sent in by a medical professional or institution (, PA, TOOL HARDENER, urgent care, hospital, or longterm...) When possible be specific @ -No Did you speak to anyone other than the patient for history (EMS, parent, family, police, friend...)? What history was obtained from this source @ -No Did you review nursing and triage notes (agree or disagree)? Why? @ -I reviewed and agree with nursing and triage notes Were old charts reviewed (outside hosp., previous admission, EMS record, old EKG, old radiological studies, urgent care reports/EKG's, longterm records)? Report findings @ -No old charts were reviewed Differential Diagnosis (chest pain, altered mental status, abdominal pain women, abdominal pain men, vaginal bleeding, weakness, fever, dyspnea, syncope, headache, dizziness, GI bleed, back pain, seizure, CVA, palpatations, mental health, musculoskeletal)? @ -not applicable EKG interpreted by me (3pts min.). @ -As above X-rays interpreted by me (1pt min.). @ -None done CT interpreted by me (1pt min.). @ -None done U/S interpreted by me (1pt. min.). @ -None done What testing was considered but not performed or refused? (CT, X-rays, U/S, labs)? Why? @ -None What meds were considered but not given or refused? Why? @ -None Did you discuss the management of the patient with other professionals (professionals i.e. , PA, TOOL HARDENER, lab, RT, psych nurse, social human services assistants, farm consultant, teacher, commissioned fire officer, renal case manager)? Give summary @ -No Was smoking cessation discussed for >3mins.? @ -No Was critical care preformed (if so, how long)? @ -No Were there social determinants of health that impacted care today? How? (Homelessness, low income, unemployed, alcoholism, drug addiction, transportation, low edu. Level, literacy, decrease access to med. care, group home, rehab)? @ -No Was there de-escalation of care discussed even if they declined (Discuss DNR or withdrawal of care, Hospice)? DNR status @ -No What co-morbidities impacted this encounter? (DM, HTN, Smoking, COPD, CAD, Cancer, CVA, ARF, Chemo, Hep., AIDS, mental health diagnosis, sleep apnea, morbid obesity)? @ -None Was patient admitted / discharged? Hospital course, mention meds given and route, prescriptions, significant lab abnormalities, going to OR and other pertinent info. @ -Patient presents with urticarial rash following antiviral medication. Patient will discontinue this. Steroids will be avoided secondary to potential for viral ulcerations in the mouth. Patient will be provided with antihistamines. Patient is comfortable with this and will be discharged Undiagnosed new problem with uncertain prognosis? @ -No Drug Therapy requiring intensive monitoring for toxicity (Heparin, Nitro, Insulin, Cardizem)? @ -No Were any procedures done? @ -No Diagnosis/symptom? @ -Urticaria Acute, or Chronic, or Acute on Chronic? @ -Acute Uncomplicated (without systemic symptoms) or Complicated (systemic symptoms)? @ -default Side effects of treatment? @ -No Exacerbation, Progression, or Severe Exacerbation? @ -No Poses a threat to life or bodily function? How? (Chest pain, [place], [place], pneumonia, PE, COPD, DKA, ARF, appy, cholecystitis, CVA, Diverticulitis, Homicidal, Suicidal, threat to staff... and all critical care pts) @ -No Disposition Clinical Impression: Urticaria Disposition: HOME SELF-CARE Condition: Stable Instructions (If sedation given, give patient instructions): Urticaria (ED) Additional Instructions: Please do follow-up with primary care physician in the next day or 2 for recheck. Discontinue antiviral medications. [id number] Claritin 10 mg daily for the next 5 days. Return for swelling of the throat or tongue or lips, difficulty breathing, worsening symptoms or other concerns. Is patient prescribed a controlled substance at d/c from ED?: No Referrals: Alexi Bronson MD [STAFF PHYSICIAN] - 1-2 days Time of Disposition: 18:46
== END 2023-11-17 19:14 | disposition home or self-care (01) ==
LOC: EC 18:20
DX: L50.0 Allergic urticaria (principal); F12.90 Cannabis use, unspecified, uncomplicated
CPT/HCPCS: 99283

== ENCOUNTER 2024-09-12 12:40 | Emergency (ER) | payer BC, OTHER ==
[2024-09-12 13:00] VITALS: RESP 18
--- NOTE | 2024-09-12 14:10 | XR ---
EXAMINATION TYPE: XR hand complete RT DATE OF EXAM: 09/12/2024 1:38 PM COMPARISON: None. CLINICAL INDICATION: Female, 34 years old with history of right thumb injury, symmetrically fall 2 da ys ago TECHNIQUE: XR hand complete RT view(s) obtained. FINDINGS: No acute fractures or dislocations evident. Soft tissues appear normal. Joint spaces are preserved th umb appears intact. Follow up exams can be performed 7-10 days from acute trauma for continued pain. IMPRESSION: 1. No acute osseous abnormality [facility], , 09/12/2024 2:07 PM
--- NOTE | 2024-09-12 14:33 | ED ---
Upper Extremity HPI - General Chief Complaint: Extremity Injury, Upper Stated Complaint: hand/thumb injury Time Seen by Provider: 09/12/24 12:57 Source: patient Mode of arrival: ambulatory Limitations: no limitations - History of Present Illness Initial Comments: This is a 34-year-old female presenting with right thumb pain (5 out of 10) x 3 days. Patient states she was playing football with her son when she was shoulder checked by him, striking her right thumb and causing it to jam. Patient states she heard a pop at that time and is concerned of fracture. Patient endorses use of ibuprofen with some pain relief. MD Complaint: Injury to:: right, finger Onset/Timin -: days(s) Other Extremity Injury: Fingers: Right Severity scale (1-10): 5 Improves With: immobilization Worsens With: movement of extremity Context: direct blow Associated Symptoms: denies other symptoms - Related Data Home Medications Medication Instructions Recorded Confirmed Folic Acid 1 mg PO DAILY 08/22/16 09/09/16 Calcium Carbonate [Tums] 500 mg PO AC-SUPPER 09/01/16 09/09/16 Previous Rx's Medication Instructions Recorded Acetaminophen-Codeine 300-30mg 1 tab PO Q4H PRN #30 tablet 09/12/16 [Tylenol #3] Ferrous Sulfate [Feosol] 325 mg PO DAILY #30 tab 09/12/16 Ibuprofen [Motrin] 600 mg PO Q6HR PRN #30 tab 09/12/16 Amoxicillin/Potassium Clav 1 tab PO Q12HR #20 tab 01/10/20 [Augmentin 875-125 Tablet] Cyclobenzaprine [Flexeril] 10 mg PO TID #15 tab 10/31/21 Ibuprofen [Motrin] 600 mg PO Q8HR PRN #30 tab 10/31/21 Ibuprofen [Motrin] 600 mg PO Q8HR PRN #24 tab 06/24/23 Clobetasol Propionate [Temovate 1 applic TOPICAL HS #1 cream 11/07/23 0.05% Cream] Allergies Allergy/AdvReac Type Severity Reaction Status Date / Time No Known Allergies Allergy Verified 09/12/24 13:01 Review of Systems ROS Statement: Those systems with pertinent positive or pertinent negative responses have been documented in the HPI. ROS Other: All systems not noted in ROS Statement are negative. Past Medical History Past Medical History: No Reported History History of Any Multi-Drug Resistant Organisms: None Reported Past Surgical History: No Surgical Hx Reported Past Anesthesia/Blood Transfusion Reactions: No Reported Reaction Past Psychological History: No Psychological Hx Reported Smoking Status: Current every day smoker Past Alcohol Use History: None Reported, Occasional Past Drug Use History: Marijuana - Past Family History Mother Family Medical History: Hypertension General Exam Limitations: no limitations General appearance: alert, in no apparent distress Head exam: Present: atraumatic, normocephalic, normal inspection Eye exam: Present: normal appearance, PERRL, EOMI. Absent: scleral icterus, conjunctival injection, periorbital swelling ENT exam: Present: normal exam, mucous membranes moist Neck exam: Present: normal inspection. Absent: tenderness, meningismus, lymphadenopathy Respiratory exam: Present: normal lung sounds bilaterally. Absent: respiratory distress, wheezes, rales, rhonchi, stridor Cardiovascular Exam: Present: regular rate, normal rhythm, normal heart sounds. Absent: systolic murmur, diastolic murmur, rubs, gallop, clicks GI/Abdominal exam: Present: soft, normal bowel sounds. Absent: distended, ten derness, guarding, rebound, rigid Extremities exam: Present: normal inspection, full ROM, normal capillary refill, joint swelling (Positive right thumb MCP joint tenderness and edema. Negative overlying erythema, ecchymosis, crepitus, deformity). Absent: tenderness, pedal edema, calf tenderness Back exam: Present: normal inspection Neurological exam: Present: alert, oriented X3, CN II-XII intact Psychiatric exam: Present: normal affect, normal mood Skin exam: Present: warm, dry, intact, normal color. Absent: rash Course Vital Signs 09/12/24 09/12/24 12:58 14:55 Temperature 98.3 F 98.0 F Pulse Rate 73 70 Respiratory 18 18 Rate Blood Pressure 105/74 111/76 O2 Sat by Pulse 99 99 Oximetry Medical Decision Making - Medical Decision Making Was pt. sent in by a medical professional or institution (, PA, WAREHOUSE WORKER, urgent care, hospital, or custodial...) When possible be specific @ -[No] Did you speak to anyone other than the patient for history (EMS, parent, family, police, friend...)? What history was obtained from this source @ -[No] Did you review nursing and triage notes (agree or disagree)? Why? @ -[I reviewed and agree with nursing and triage notes] Were old charts reviewed (outside hosp., previous admission, EMS record, old EKG, old radiological studies, urgent care reports/EKG's, custodial records)? Report findings @ -[No old charts were reviewed] Differential Diagnosis (chest pain, altered mental status, abdominal pain women, abdominal pain men, vaginal bleeding, weakness, fever, dyspnea, syncope, headache, dizziness, GI bleed, back pain, seizure, CVA, palpatations, mental health, musculoskeletal)? @ -Thumb fracture, thumb dislocation, thumb contusion, metacarpal fracture, metacarpal dislocation, carpal fracture, carpal dislocation EKG interpreted by me (3pts min.). @ -Not done X-rays interpreted by me (1pt min.). @ -No obvious fracture dislocation of right thumb noted on x-ray. CT interpreted by me (1pt min.). @ -[None done] U/S interpreted by me (1pt. min.). @ -[None done] What testing was considered but not performed or refused? (CT, X-rays, U/S, labs)? Why? @ -[None] What meds were considered but not given or refused? Why? @ -[None] Did you discuss the management of the patient with other professionals (professionals i.e. , PA, WAREHOUSE WORKER, lab, RT, psych nurse, family welfare social work professor, tire duster, teacher, commercial account officer, correctional counselor/case manager)? Give summary @ -[No] Was smoking cessation discussed for >3mins.? @ -[No] Was critical care preformed (if so, how long)? @ -[No] Were there social determinants of health that impacted care today? How? (Homelessness, low income, unemployed, alcoholism, drug addiction, transportation, low edu. Level, literacy, decrease access to med. care, prison, rehab)? @ -[No] Was there de-escalation of care discussed even if they declined (Discuss DNR or withdrawal of care, Hospice)? DNR status @ -[No] What co-morbidities impacted this encounter? (DM, HTN, Smoking, COPD, CAD, Cancer, CVA, ARF, Chemo, Hep., AIDS, mental health diagnosis, sleep apnea, morbid obesity)? @ -[None] Was patient admitted / discharged? Hospital course, mention meds given and route, prescriptions, significant lab abnormalities, going to OR and other pertinent info. @ -Discharge. Right hand x-ray revealed no obvious fracture or deformity of right thumb. Patient provided thumb splint prior to discharge. Undiagnosed new problem with uncertain prognosis? @ -[No] Drug Therapy requiring intensive monitoring for toxicity (Heparin, Nitro, Insulin, Cardizem)? @ -[No] Were any procedures done? @ -[No] Diagnosis/symptom? @ -Thumb contusion Acute, or Chronic, or Acute on Chronic? @ -Acute Uncomplicated (without systemic symptoms) or Complicated (systemic symptoms)? @ -Uncomplicated Side effects of treatment? @ -[No] Exacerbation, Progression, or Severe Exacerbation? @ -[No] Poses a threat to life or bodily function? How? (Chest pain, [place], [place], pneumonia, PE, COPD, DKA, ARF, appy, cholecystitis, CVA, Diverticulitis, Homicidal, Suicidal, threat to staff... and all critical care pts) @ -[No] Disposition Clinical Impression: Thumb contusion Disposition: HOME SELF-CARE Condition: Good Instructions (If sedation given, give patient instructions): Ajit Salvador (ED) Is patient prescribed a controlled substance at d/c from ED?: No Referrals: None,Stated [Primary Care Provider] - 1-2 days Time of Disposition: 14:33
[2024-09-12 14:57] VITALS: BP 111/76; PULSE 70; TEMP 98
== END 2024-09-12 15:09 | disposition home or self-care (01) ==
LOC: EC 12:40
DX: S60.011A Contusion of right thumb without damage to nail, initial encounter (principal); F17.200 Nicotine dependence, unspecified, uncomplicated; W22.8XXA Striking against or struck by other objects, initial encounter
CPT/HCPCS: 99283

== ENCOUNTER 2024-12-08 08:55 | Emergency (ER) | payer BC ==
[2024-12-08 09:02] VITALS: PULSE 89; RESP 18
[2024-12-08] MEDS: SODIUM CHLORIDE 0.9% 1,000 ML IV ONE (09:30)
[2024-12-08] MEDS: KETOROLAC 15 MG/ML 1 ML VIAL IVP STA (09:31)
[2024-12-08] MEDS: diphenhydrAMINE 50 MG/ML 1 ML VIAL IVP STA (09:32)
[2024-12-08] MEDS: METOCLOPRAMIDE 5 MG/ML 2 ML VIAL IVP STA (09:33)
--- NOTE | 2024-12-08 09:52 | CT ---
EXAMINATION TYPE: CT brain wo con CT DLP: 1114.4 mGycm, Automated exposure control for dose reduction was used. DATE OF EXAM: 12/08/2024 9:43 AM COMPARISON: CT brain C-spine 11/11/2015 CLINICAL INDICATION:Female, 34 years old with history of Intractable headache, headache TECHNIQUE: Brain: Multiple axial CT images of the brain were obtained without IV contrast. . Coronal and sagitta l reformats reviewed. FINDINGS: Brain: Extra-axial spaces: No abnormal extra-axial fluid collections. Ventricular system: Within normal limits Cerebral parenchyma: No acute intraparenchymal hemorrhage or mass effect. The bone-white junction is well differentiated. Cerebellum: Unremarkable. Mass effect: No evidence of midline shift. Intracranial vasculature: unremarkable Soft tissues: Normal. Calvarium/osseous structures: No depressed skull fracture. Paranasal sinuses and mastoid air cells: Minimal scattered paranasal sinus disease. Mastoid air cells are clear. Visualized orbits: Orbital contents are intact. IMPRESSION: No acute intracranial process. [facility], , 12/08/2024 9:50 AM
[2024-12-08 10:13] LABS: Influenza A Not Detected (Not Detectd); Influenza B Not Detected (Not Detectd); RSV Not Detected (Not Detectd)
[2024-12-08 10:56] VITALS: BP 130/79; TEMP 98.1
--- NOTE | 2024-12-08 11:02 | ED ---
Headache HPI - General Chief Complaint: Headache Stated Complaint: Migrane x3days Time Seen by Provider: 12/08/24 08:58 Source: patient, RN notes reviewed Mode of arrival: ambulatory Limitations: no limitations - History of Present Illness Initial Comments: 34-year-old female presents emergency department with chief complaint of headache. She states she has had a headache for last few days gradually getting worse. She states she never had a headache like this in the past. Patient states that she has had some photophobia, nausea without known fever neck pain or neck stiffness. No chest pain or shortness of breath no focal weakness. Patient offers no complaints. - Related Data Home Medications Medication Instructions Recorded Confirmed Folic Acid 1 mg PO DAILY 08/22/16 09/09/16 Calcium Carbonate [Tums] 500 mg PO AC-SUPPER 09/01/16 09/09/16 Previous Rx's Medication Instructions Recorded Acetaminophen-Codeine 300-30mg 1 tab PO Q4H PRN #30 tablet 09/12/16 [Tylenol #3] Ferrous Sulfate [Feosol] 325 mg PO DAILY #30 tab 09/12/16 Ibuprofen [Motrin] 600 mg PO Q6HR PRN #30 tab 09/12/16 Amoxicillin/Potassium Clav 1 tab PO Q12HR #20 tab 01/10/20 [Augmentin 875-125 Tablet] Cyclobenzaprine [Flexeril] 10 mg PO TID #15 tab 10/31/21 Ibuprofen [Motrin] 600 mg PO Q8HR PRN #30 tab 10/31/21 Ibuprofen [Motrin] 600 mg PO Q8HR PRN #24 tab 06/24/23 Clobetasol Propionate [Temovate 1 applic TOPICAL HS #1 cream 11/07/23 0.05% Cream] Allergies Allergy/AdvReac Type Severity Reaction Status Date / Time No Known Allergies Allergy Verified 12/08/24 08:58 Review of Systems ROS Statement: Those systems with pertinent positive or pertinent negative responses have been documented in the HPI. ROS Other: All systems not noted in ROS Statement are negative. Past Medical History Past Medical History: No Reported History History of Any Multi-Drug Resistant Organisms: None Reported Past Surgical History: Section Past Anesthesia/Blood Transfusion Reactions: No Reported Reaction Past Psychological History: No Psychological Hx Reported Smoking Status: Current every day smoker Past Alcohol Use History: None Reported, Occasional Past Drug Use History: Marijuana - Past Family History Mother Family Medical History: Hypertension General Exam Limitations: no limitations General appearance: alert, in no apparent distress Head exam: Present: atraumatic, normocephalic, normal inspection Eye exam: Present: normal appearance, PERRL, EOMI. Absent: scleral icterus, conjunctival injection, periorbital swelling ENT exam: Present: normal exam, normal oropharynx, mucous membranes moist Neck exam: Present: normal inspection, full ROM. Absent: tenderness, meningismus, lymphadenopathy Respiratory exam: Present: normal lung sounds bilaterally. Absent: respiratory distress, wheezes, rales, rhonchi, stridor Cardiovascular Exam: Present: regular rate, normal rhythm, normal heart sounds. Absent: systolic murmur, diastolic murmur, rubs, gallop, clicks Neurological exam: Present: alert, oriented X3, CN II-XII intact, reflexes normal. Absent: motor sensory deficit Course Vital Signs 12/08/24 08:59 Temperature 98.8 F Pulse Rate 89 Respiratory 18 Rate Blood Pressure 132/76 O2 Sat by Pulse 100 Oximetry Medical Decision Making - Medical Decision Making Was pt. sent in by a medical professional or institution (, PA, LICENSING COURT MAGISTRATE, urgent care, hospital, or halfway...) When possible be specific @ -No Did you speak to anyone other than the patient for history (EMS, parent, family, police, friend...)? What history was obtained from this source @ -No Did you review nursing and triage notes (agree or disagree)? Why? @ -I reviewed and agree with nursing and triage notes Were old charts reviewed (outside hosp., previous admission, EMS record, old EKG, old radiological studies, urgent care reports/EKG's, halfway records)? Report findings @ -No old charts were reviewed Differential Diagnosis (chest pain, altered mental status, abdominal pain women, abdominal pain men, vaginal bleeding, weakness, fever, dyspnea, syncope, headache, dizziness, GI bleed, back pain, seizure, CVA, palpatations, mental he alth, musculoskeletal)? @ -Differential Headache: Migraine, tension, cluster, carbon monoxide, central venous thrombosis, pension karma temporal arteritis, acute closure glaucoma, intercranial hemorrhage, mastoiditis, sinusitis, head injury, this is not meant to be an all-inclusive list. EKG interpreted by me (3pts min.). @ -None X-rays interpreted by me (1pt min.). @ -None done CT interpreted by me (1pt min.). @ -CT brain showing no acute intracranial hemorrhage or mass effect. U/S interpreted by me (1pt. min.). @ -None done What testing was considered but not performed or refused? (CT, X-rays, U/S, labs)? Why? @ -None What meds were considered but not given or refused? Why? @ -None Did you discuss the management of the patient with other professionals (professionals i.e. , PA, LICENSING COURT MAGISTRATE, lab, RT, psych nurse, director of social services, director of corporate marketing, teacher, certified juvenile probation officer, casey saw operator)? Give summary @ -No Was smoking cessation discussed for >3mins.? @ -No Was critical care preformed (if so, how long)? @ -No Were there social determinants of health that impacted care today? How? (Homelessness, low income, unemployed, alcoholism, drug addiction, transportation, low edu. Level, literacy, decrease access to med. care, halfway, rehab)? @ -No Was there de-escalation of care discussed even if they declined (Discuss DNR or withdrawal of care, Hospice)? DNR status @ -No What co-morbidities impacted this encounter? (DM, HTN, Smoking, COPD, CAD, Cancer, CVA, ARF, Chemo, Hep., AIDS, mental health diagnosis, sleep apnea, morbid obesity)? @ -None Was patient admitted / discharged? Hospital course, mention meds given and route, prescriptions, significant lab abnormalities, going to OR and other pertinent info. @ -Discharge patient feels improved after migraine cocktail. CT was obtained given patient's worst headache of her life without prior migraine history. Patient is improved will be discharged in stable condition. Undiagnosed new problem with uncertain prognosis? @ -No Drug Therapy requiring intensive monitoring for toxicity (Heparin, Nitro, Insulin, Cardizem)? @ -No Were any procedures done? @ -No Diagnosis/symptom? @ -Migraine Acute, or Chronic, or Acute on Chronic? @ -Acute Uncomplicated (without systemic symptoms) or Complicated (systemic symptoms)? @ -Uncomplicated Side effects of treatment? @ -No Exacerbation, Progression, or Severe Exacerbation? @ -No Poses a threat to life or bodily function? How? (Chest pain, [place], NM, pneumonia, PE, COPD, DKA, ARF, appy, cholecystitis, CVA, Diverticulitis, Homicidal, Suicidal, threat to staff... and all critical care pts) @ -No - Lab Data Lab Results 12/08/24 Range/Units 09:25 Influenza Type A (PCR) Not Detected (Not Detectd) Influenza Type B (PCR) Not Detected (Not Detectd) RSV (PCR) Not Detected (Not Detectd) SARS-CoV-2 (PCR) Not Detected (Not Detectd) Disposition Clinical Impression: Migraine headache Disposition: HOME SELF-CARE Condition: Stable Instructions (If sedation given, give patient instructions): Acute Headache (ED) Additional Instructions: Please return to the Emergency Department if symptoms worsen or any other concerns. Is patient prescribed a controlled substance at d/c from ED?: No Referrals: None,Stated [Primary Care Provider] - 1-2 days Time of Disposition: 10:24
== END 2024-12-08 10:55 | disposition home or self-care (01) ==
LOC: EC 08:55
DX: G43.909 Migraine, unspecified, not intractable, without status migrainosus (principal); F17.200 Nicotine dependence, unspecified, uncomplicated
CPT/HCPCS: 87636; 70450; 99284; 96374; 96375 ×2; 96361; J1200; J2765; J1885